=== PATIENT | female | born 1950 | race Caucasian/White ===

== ENCOUNTER → 2020-02-27 | Outpatient (CLI) | payer OTHER ==
[~2020-02-27] MED LIST: ANTIVERT25 M1 PO; HYZAAR 50-12.1 UDTAB; RELAGESIC TABL1 EACH PO; SYNTHROID88 MCG
== END | disposition home or self-care (01) ==
LOC: NUCLEAR 07:18
DX: R07.89 Other chest pain (principal); I10 Essential (primary) hypertension; E78.2 Mixed hyperlipidemia; E11.9 Type 2 diabetes mellitus without complications; E07.89 Other specified disorders of thyroid; I26.99 Other pulmonary embolism without acute cor pulmonale; R06.09 Other forms of dyspnea
CPT/HCPCS: 78452; 93017; A9500

== ENCOUNTER 2024-11-23 09:05 | Inpatient (IN) | payer OTHER ==
[~2024-11-23] VITALS: Ht 160 cm; Wt 86.2 kg
[2024-11-23] MEDS ORDERED: 0.9 % SODIUM CHLORIDE 1,000 ML IV SCH ×2 (09:36→15:45)
[2024-11-23] MEDS ORDERED: AMLODIPINE (09:43)
[2024-11-23] MEDS ORDERED: BUMETANIDE1 MG PO (09:44)
[2024-11-23] MEDS ORDERED: PROZAC10 MG (09:44)
[2024-11-23] MEDS ORDERED: KRISTALOSE10 GM (09:44)
[2024-11-23] MEDS ORDERED: [UNRECOGNIZED DRUG - OTHER] (09:44)
[2024-11-23] MEDS ORDERED: CEFTRIAXONE SODIUM 1,000 MG VIAL IV ONE (09:45)
[2024-11-23] MEDS ORDERED: XIFAXAN550 MG (09:45)
[2024-11-23] MEDS ORDERED: TIROSINT25 MCG PO (09:45)
[2024-11-23] MEDS ORDERED: TOPROL XL25 M1 PO (09:45)
[2024-11-23] MEDS ORDERED: LOREEV XR1 MG PO (09:45)
[2024-11-23] MEDS ORDERED: ELIQUIS2.5 MG PO (09:46)
--- NOTE | 2024-11-23 09:46 | NUR ---
SE RECIBE PTE ALERTA Y DESORIENTADA EN AMBULANCIA EN COMPANIA DE CUIDADORA Y PARAMEDICOS. LA MISMA REFIERE DEBILIDAD. SE INTENTA KARUNA B/P MANAUL Y LA MISMA NO SE ESCCUCHA. EN SUO NOLBERTO INTENTA TOMARLA SIN EXITO. SE COLOCA PTE EN UNIDAD DE INTENSIVO #2 EN CAMA Y SE CONECTA A MONITO CARDIACO Y SATUROMETRO. SE REALIZA EKG Y SE PRESENTA A DR. MCNAMARA EL CUAL EVALUA Y FIRMA EL MISMO. SE OBSERVA COMIDA EN BOCA.
[2024-11-23] MEDS ORDERED: NOREPINEPHRINE BITARTRATE 1 MG/ML AMPUL IV ONE (10:45)
[2024-11-23] MEDS ORDERED: SODIUM BICARBONATE 1 MEQ/ML DISP.SYRIN 50ML IV ONE (11:15)
[2024-11-23 11:45] LABS: ABG PH 7.234 (7.35-7.45); ABG PO2 102.3 mmHg (80-100); ABG pCO2 25.5 mmHg (35-45); BASE EXCESS -15.1 mmol/l; BICARBONATE 10.6 mmol/l (23-25); SaO2 95.9 %; Tco2 11.3 mmol/l; allen test SATISFACTORY; o2 50 %; puncture site RADIAL RIGHT
--- NOTE | 2024-11-23 11:50 | NUR ---
PTE ALERTA Y DESORIENTADA. SE UBICA EN CAMA CON BARANDAS ELEVADAS, SE CONECTA A MONITOR Y OXIMETRIA. PTE CON RESPIRACIONES ABDOMINALES. SE CANALIZA A PTE EN BRAZO DERECHO, AREA DLEFINA DE EDEMA Y ENROJECIMIENTO. PTE SE ADMINISTRAN MEDICAMENTOS Y SE REALIZAN LABORATORIOS. PTE CON SATURACION EN 90% DR. SUNSHINE ORDENA A QUE SE ENTUBE PTE. PTE CON TUBO ENDOTRAQUEAL. PTE RECIBIENDO LEVOPHED 8 MG @ 15 ML/HR. AL MOMENTO PTE SE ENCUENTRA CON BP 107/77, MAP 100, SATURACION 100 Y PULSO 77. SE MANTIENE A PTE BAJO OBSERVACION
[2024-11-23] MEDS ORDERED: SODIUM BICARBONATE 50MEQ/50ML VIAL IV ONE (12:09)
[2024-11-23 12:36] LABS: ALBUMIN 3.3 gm/dL (3.4-5.0); BILIRUBIN TOTAL 5.02 mg/dL (0.3-1.2); CREATININE SERUM 2.86 mg/dL (0.55-1.02); GFR 16.16; GLOBULINA 2.2 G/DL (2.4-3.5); POTASSIUM 3.85 mEq/L (3.5-5.1); TOTAL PROTEIN 5.5 gm/dL (6.4-8.2)
[2024-11-23 12:41] LABS: CALCIUM 9.1 mg/dL (8.5-10.1); CREATININE SERUM 2.91 mg/dL (0.55-1.02); GFR 15.84; HEMATOCRIT 40.9 % (36.0-45.00); HEMOGLOBIN 13.3 g/dL (12.0-15.00); MEAN CELL VOLUME 90.9 fL (80.00-100.00); MEAN CORPUSCULAR HEMOGLOBIN 29.5 pg (27.00-32.0); MEAN CORPUSCULAR HGB CONC 32.4 g/dl (32.0-36.0); POTASSIUM 3.9 mEq/L (3.5-5.1)
[2024-11-23 13:13] LABS: PLATELET COUNT 22 K/uL (150-450)
[2024-11-23] MEDS ORDERED: NITROGLYCERIN IN 5 % DEXTROSE 50 MG/250 ML BOTTLE IV SCH (13:15)
[2024-11-23] MEDS ORDERED: MIDAZOLAM HCL 50 MG/10 ML VIAL IV SCH (13:45)
[2024-11-23 13:54] LABS: RED CELL DISTRIBUTION WIDTH 17.5 % (11.5-14.5)
[2024-11-23] MEDS ORDERED: DEXTROSE 50 % IN WATER 0.5 G/ML DISP.SYRIN IV PRN (16:00)
[2024-11-23] MEDS ORDERED: INSULIN LISPRO 1,000 UNIT/10 ML UNITS SUBCUTANEO PRN (16:00)
[2024-11-23] MEDS ORDERED: CITRIC ACID/SODIUM CITRATE 30 ML BLIST.PACK PO ONE (16:45)
[2024-11-23] MEDS ORDERED: CITRIC ACID/SODIUM CITRATE 30 ML BLIST.PACK PO SCH (17:00)
[2024-11-23] MEDS ORDERED: PANTOPRAZOLE SODIUM 40 MG in 0.9 % SODIUM CHLORIDE 8 ML IV PUSH SCH (17:00)
[2024-11-23] MEDS ORDERED: LEVALBUTEROL HCL 0.63 MG/3 ML SOLUTION IH SCH (17:00)
[2024-11-23 17:23] LABS: URINE APPEARANCE Cloudy; URINE BILIRRUBIN Negative (NEGATIVE); URINE BLOOD Trace; URINE COLOR Yellow; URINE GLUCOSE Negative (NEGATIVE); URINE KETONE Negative (NEGATIVE); URINE LEUKOCYTE Negative; URINE NITRATE Negative; URINE UROBILINOGEN 0.2 E.U./dl
[2024-11-23 17:25] LABS: URINE BACTERIA 74.6 uL (0.0-1933); URINE CAST 6.62 uL (0.0-1.40); URINE EPITHELIAL CELLS 18.5 uL (0.0-38.8); URINE WBC 11.7 uL (0.0-23.2)
[2024-11-23 17:51] LABS: URINE PROTEIN 100 (NEGATIVE); URINE RBC 1.6 uL (0.0-20.8)
[2024-11-23 17:52] LABS: URINE CRYSTALS FEW /HPF; URINE MUCUS MODERATE
[2024-11-23 19:32] VITALS: BP 130/67; O2SAT 100
[2024-11-23 20:56] LABS: CKMB 19.1 NG/ML (0.5-3.6)
[2024-11-23] MEDS ORDERED: LINEZOLID IN DEXTROSE 5% 300 ML IV SCH (21:00)
[2024-11-23] MEDS ORDERED: NOREPINEPHRINE BITARTRATE 8 MG in DEXTROSE 5 % IN WATER 250 ML IV SCH (21:15)
[2024-11-23 21:18] VITALS: BP 109/80; O2SAT 100
[2024-11-23 21:50] VITALS: BP 129/92; O2SAT 100
[2024-11-23 22:55] VITALS: BP 129/92; O2SAT 100
[2024-11-23 23:42] VITALS: BP 128/95; O2SAT 99
[2024-11-24] VITALS (12 sets, daily range): BP systolic 76–161; BP diastolic 24–93; O2SAT 91–100
[2024-11-24 04:20] LABS: HEMATOCRIT 42.1 % (36.0-45.00); HEMOGLOBIN 14.4 g/dL (12.0-15.00); MEAN CELL VOLUME 88.1 fL (80.00-100.00); MEAN CORPUSCULAR HEMOGLOBIN 30.1 pg (27.00-32.0); MEAN CORPUSCULAR HGB CONC 34.2 g/dl (32.0-36.0); RED BLOOD COUNT 4.78 M/uL (4.00-6.00)
[2024-11-24 04:31] LABS: INR 1.73; PARTIAL THROMBOPLASTIN TIME 34.2 SECONDS (22.0-34.0)
[2024-11-24 04:37] LABS: ALBUMIN 3.4 gm/dL (3.4-5.0); BILIRUBIN TOTAL 4.29 mg/dL (0.3-1.2); CALCIUM 9.2 mg/dL (8.5-10.1); CREATININE SERUM 3.04 mg/dL (0.55-1.02); GFR 15.06; GLOBULINA 2.2 G/DL (2.4-3.5); MAGNESIUM 2.6 mg/dL (1.8-2.4); PHOSPHOROUS 6.6 mg/dL (2.5-4.9); POTASSIUM 3.86 mEq/L (3.5-5.1); TOTAL PROTEIN 5.6 gm/dL (6.4-8.2)
[2024-11-24 04:39] LABS: GAMMA GLUTAMIL TRANSFERASE 359 U/L (5-55)
[2024-11-24 04:40] LABS: C-REACTIVE PROTEIN 4.07 MG/DL (0.00-0.29); TSH 1.47 uIU/mL (0.358-3.74)
[2024-11-24 04:41] LABS: LDH 1408 U/L (84-246); PROTHROMBIN TIME 18.1 SECONDS (9.0-11.5)
[2024-11-24 04:45] LABS: ERYTHROCYTE SEDIMENTATION RATE < 1 mm/hr
[2024-11-24 05:28] LABS: CKMB 13.9 NG/ML (0.5-3.6)
[2024-11-24 05:55] LABS: PLATELET COUNT 28 K/uL (150-450)
[2024-11-24 06:19] LABS: D DIMER 16.27 MG/L
[2024-11-24] MEDS ORDERED: CEFTRIAXONE SODIUM 2,000 MG in DEXTROSE 5 % IN WATER 100 ML IV SCH (09:00)
[2024-11-24] MEDS ORDERED: MIDAZOLAM HCL 50 MG in 0.9 % SODIUM CHLORIDE 50 ML IV SCH (09:30)
[2024-11-24] MEDS ORDERED: EPINEPHRINE HCL/PF 4 MG in DEXTROSE 5 % IN WATER 250 ML IV SCH (11:15)
[2024-11-24] MEDS ORDERED: SODIUM BICARBONATE 50MEQ/50ML VIAL IV ONE (11:23)
[2024-11-24] MEDS ORDERED: DISP SYRIN IV SCH (11:45)
[2024-11-24] MEDS ORDERED: SODIUM BICARBONATE IV SCH (11:45)
[2024-11-24] MEDS ORDERED: METRONIDAZOLE/SODIUM CHLORIDE 100 ML IV SCH (13:00)
[2024-11-24] MEDS ORDERED: DOPamine HCL 400MG/D5w 250ML PLAST..BAG IV STA (13:38)
[2024-11-24] MEDS ORDERED: EPINEPHRINE HCL/PF 1 MG/ML AMPUL IV PUSH STA (13:51)
[2024-11-27 10:08] LABS: PLATELET ESTIMATE DECREASED (NORMAL)
== END 2024-11-25 11:44 | disposition expired | DRG 189 ==
LOC: ER 09:05 → ICU-2 16:17 → ICU 16:17 → ICU-2 11-25 00:09
PROVIDERS: Emergency Medicine; Internal Medicine Hematology & Oncology; ADMIT Internal Medicine; ATTEND Internal Medicine
PROC: BW40ZZZ Ultrasonography of Abdomen (ICD-10-PCS; principal; 2024-11-23)
DX: J96.01 Acute respiratory failure with hypoxia (principal); J69.0 Pneumonitis due to inhalation of food and vomit; I21.4 Non-ST elevation (NSTEMI) myocardial infarction; R65.21 Severe sepsis with septic shock; N17.9 Acute kidney failure, unspecified; I48.20 Chronic atrial fibrillation, unspecified; I13.0 Hypertensive heart and chronic kidney disease with heart failure and stage 1 through stage 4 chronic kidney disease, or unspecified chronic kidney disease; I46.9 Cardiac arrest, cause unspecified; I95.89 Other hypotension; E78.5 Hyperlipidemia, unspecified; I35.0 Nonrheumatic aortic (valve) stenosis; E03.9 Hypothyroidism, unspecified; K76.89 Other specified diseases of liver; D69.6 Thrombocytopenia, unspecified; N18.9 Chronic kidney disease, unspecified; I50.9 Heart failure, unspecified